=== PATIENT | male | born 1940 | race Caucasian/White ===

== ENCOUNTER 2021-05-17 12:43 | Inpatient (IN) | payer BC, MEDICARE ==
[~2021-05-17] VITALS: Ht 172.7 cm; Wt 88.0 kg
[2021-05-17 14:34] LABS: Basophils # (auto) 0 10 ^3/uL (0-0.2); Basophils % (auto) 0.3 % (0.0-2.0); Eosinophils # (auto) 0.1 10 ^3/uL (0-0.8); Eosinophils % (auto) 1.1 % (0.0-7.0); Hematocrit 40.9 % (41.0-53.0); Hemoglobin 13.7 g/dL (13.5-17.5); Mean Corpuscular Hemoglobin 30.2 pg (28.0-32.0); Mean Corpuscular Hgb Conc. 33.4 g/dL (32.0-36.0); Mean Corpuscular Volume 90.2 fL (80.0-100.0); Monocytes # (auto) 0.5 10 ^3/uL (0-1.3); Monocytes % (auto) 7.2 % (0.0-12.0); Neutrophils # (auto) 5.4 10 ^3/uL (1.6-8.6); Neutrophils % (auto) 77.4 % (37.0-80.0); Nucleated Red Blood Cells % 0.1 %; Red Blood Cells 4.53 10^6/uL (4.5-5.90); Red Cell Distribution Width 15.1 % (11.8-14.3)
[2021-05-17 14:55] LABS: Albumin 3.5 g/dL (3.4-5.0); Calcium 9.2 mg/dL (8.5-10.1); Magnesium 2.5 mg/dL (1.6-2.6); Potassium 3.9 mmol/L (3.5-5.1)
[2021-05-17 15:15] LABS: BUN/Creatinine Ratio 22.6; Bilirubin, Total 0.4 mg/dL (0.2-1.0); Total Protein 7.6 g/dL (6.4-8.2)
[2021-05-17] MEDS ORDERED: SODIUM CHLORIDE 0.9% 1,000 ML IV ONE (17:15)
[2021-05-17 19:27] LABS: Urine Bacteria NONE SEEN /hpf (None Seen); Urine Blood Negative /uL (Negative); Urine Hyaline Cast FEW /lpf (0 - 2); Urine Specific Gravity 1.021 (1.001-1.035); Urine WBC <1 /hpf (0 - 3)
[2021-05-17] MEDS ORDERED: ACETAMINOPHEN 325 MG TAB PO PRN (21:00)
[2021-05-17] MEDS ORDERED: TEMAZEPAM 15 MG CAP PO PRN (21:00)
[2021-05-17] MEDS ORDERED: MORPHINE SULFATE INJECTION 2 MG/ML SYRG IV PRN (21:00)
[2021-05-17] MEDS ORDERED: MECLIZINE HCL 25 MG TAB PO PRN (21:00)
[2021-05-17] MEDS ORDERED: ONDANSETRON HCL 4 MG/2 ML VIAL IV PRN (21:00)
[2021-05-17] MEDS ORDERED: NITROGLYCERIN 0.4 MG SL TAB SL PRN (21:00)
[2021-05-18] VITALS (15 sets, daily range): BP systolic 122–168; BP diastolic 72–92
[2021-05-18] MEDS ORDERED: LEVO25TA6 PO (05:05)
[2021-05-18] MEDS ORDERED: LOSA-69 PO (05:05)
[2021-05-18] MEDS ORDERED: HYDR12.56 PO (05:05)
[2021-05-18] MEDS ORDERED: LEVO112T4 PO (05:05)
[2021-05-18 05:35] LABS: Basophils # (auto) 0 10 ^3/uL (0-0.2); Basophils % (auto) 0.3 % (0.0-2.0); Eosinophils # (auto) 0.1 10 ^3/uL (0-0.8); Eosinophils % (auto) 2.3 % (0.0-7.0); Hematocrit 40.5 % (41.0-53.0); Hemoglobin 13.5 g/dL (13.5-17.5); Lymphocytes # (auto) 1.1 10 ^3/uL (0.4-5.4); Lymphocytes % (auto) 18.8 % (10.0-50.0); Mean Corpuscular Hemoglobin 30.2 pg (28.0-32.0); Mean Corpuscular Hgb Conc. 33.3 g/dL (32.0-36.0); Mean Corpuscular Volume 90.7 fL (80.0-100.0); Monocytes # (auto) 0.5 10 ^3/uL (0-1.3); Neutrophils % (auto) 69.6 % (37.0-80.0); Nucleated Red Blood Cells % 0.1 %; Red Blood Cells 4.46 10^6/uL (4.5-5.90); Red Cell Distribution Width 15.3 % (11.8-14.3); White Blood Cell 5.7 10^3/uL (4.4-10.8)
[2021-05-18 05:59] LABS: BUN/Creatinine Ratio 23.4; Calcium 8.7 mg/dL (8.5-10.1); Potassium 3.3 mmol/L (3.5-5.1)
[2021-05-18] MEDS: LEVOTHYROXINE SODIUM 25 MCG TAB PO SCH (06:29)
[2021-05-18] MEDS: LEVOTHYROXINE SODIUM 112 MCG TAB PO SCH (06:29)
[2021-05-18] MEDS ORDERED: ADENOSINE 72 MG in GIVE UN-DILUTED 0 ML IV STA (09:46)
[2021-05-18] MEDS ORDERED: PANTOPRAZOLE 40 MG TAB PO SCH (10:00)
[2021-05-18] MEDS ORDERED: POTASSIUM CHL 20 Meq TABLET PO ONE (10:00)
[2021-05-18] MEDS: HCTZ 25 MG TAB PO SCH (10:00)
[2021-05-18] MEDS: LOSARTAN POTASSIUM 50 MG TAB PO SCH (10:00)
[2021-05-18] MEDS: ASPirin 81 mg TAB PO SCH (10:18)
[2021-05-18 10:26] LABS: Cholesterol 163 mg/dL (< 200); HDL Cholesterol 37 mg/dL (40-59); LDL Cholesterol 114 mg/dL (< 100); Triglycerides 80 mg/dL (< 150)
[2021-05-18] MEDS ORDERED: LATA0.0019 EACHEYE (18:26)
[2021-05-18] MEDS ORDERED: BRIN1SUS6 OP (18:26)
[2021-05-18] MEDS ORDERED: THYR60TA PO (18:26)
[2021-05-18] MEDS ORDERED: LORazepam 2MG/ML-1ML VIAL IV PRN (22:45)
[2021-05-19] VITALS (14 sets, daily range): BP systolic 128–161; BP diastolic 79–97
[2021-05-19] MEDS: LEVOTHYROXINE SODIUM 25 MCG TAB PO SCH (06:34)
[2021-05-19] MEDS: LEVOTHYROXINE SODIUM 112 MCG TAB PO SCH (06:34)
[2021-05-19] MEDS: ASPirin 81 mg TAB PO SCH (09:43)
[2021-05-19] MEDS: LOSARTAN POTASSIUM 50 MG TAB PO SCH (09:44)
[2021-05-19] MEDS: HCTZ 25 MG TAB PO SCH (09:44)
[2021-05-19] MEDS ORDERED: LIDOCAINE 2%HCL (LOCAL ANESTH.) INJ 20ML MDV ONE (12:30)
[2021-05-19] MEDS ORDERED: IODIXANOL 320MG/ML 100ML BTL IV ONE ×2 (12:30→13:43)
[2021-05-19] MEDS ORDERED: ANGIOMAX 250 MG VIAL IV ONE (13:08)
[2021-05-19] MEDS ORDERED: MIDAZOLAM HCL 2MG/2ML 2ml VIAL (1mg/ml) ONE (13:09)
[2021-05-19] MEDS ORDERED: HEPARIN SODIUM (PORCINE) 5000 UNITS/ML 1ML VIAL ONE (13:09)
[2021-05-19] MEDS ORDERED: fentaNYL CITRATE 100 MCG/2 ML VL ONE (13:09)
[2021-05-19] MEDS ORDERED: SODIUM CHL 0.9% 50 ML ONE (13:09)
[2021-05-19] MEDS ORDERED: VERAPAMIL 2.5MG/ML INJ 2ML VIAL IV ONE (13:09)
[2021-05-19 13:50] LABS: Basophils # (auto) 0 10 ^3/uL (0-0.2); Basophils % (auto) 0.2 % (0.0-2.0); Eosinophils # (auto) 0.1 10 ^3/uL (0-0.8); Eosinophils % (auto) 1.3 % (0.0-7.0); Hematocrit 38.8 % (41.0-53.0); Hemoglobin 13.1 g/dL (13.5-17.5); Lymphocytes % (auto) 17.9 % (10.0-50.0); Mean Corpuscular Hemoglobin 30.3 pg (28.0-32.0); Mean Corpuscular Hgb Conc. 33.7 g/dL (32.0-36.0); Mean Corpuscular Volume 90.1 fL (80.0-100.0); Monocytes # (auto) 0.6 10 ^3/uL (0-1.3); Neutrophils # (auto) 3.9 10 ^3/uL (1.6-8.6); Neutrophils % (auto) 70.6 % (37.0-80.0); Nucleated Red Blood Cells % 0.1 %; Red Blood Cells 4.31 10^6/uL (4.5-5.90); Red Cell Distribution Width 15.2 % (11.8-14.3); White Blood Cell 5.6 10^3/uL (4.4-10.8)
[2021-05-19] MEDS ORDERED: TICAGRELOR 90 MG TAB ONE ×2 (13:59→14:00)
[2021-05-19 14:04] LABS: INR 1.07 (0.9-1.15); Partial Thromboplastin Time 26.8 sec (23.6-33.0)
[2021-05-19 14:06] LABS: BUN/Creatinine Ratio 23.8; Potassium 3.6 mmol/L (3.5-5.1)
[2021-05-19] MEDS: LATANOPROST 0.005 % OPTH(EYE) SOL 2.5ML EACHEYE SCH (17:05)
[2021-05-19] MEDS: SODIUM CHLORIDE 0.9% 1,000 ML IV SCH (17:05)
[2021-05-19] MEDS: SIMBRINZA EYE LEFTEYE SCH ×2 (17:05→22:40)
[2021-05-19] MEDS: ATORVASTATIN 20 MG TAB PO SCH (22:35)
[2021-05-19] MEDS: TICAGRELOR 90 MG TAB PO SCH (22:35)
[2021-05-20] VITALS (7 sets, daily range): BP systolic 139–164; BP diastolic 78–97
[2021-05-20] MEDS: SIMBRINZA EYE LEFTEYE SCH ×3 (05:35→23:08)
[2021-05-20 06:06] LABS: BUN/Creatinine Ratio 26.4; Calcium 8.8 mg/dL (8.5-10.1); Potassium 4.1 mmol/L (3.5-5.1)
[2021-05-20] MEDS: LEVOTHYROXINE SODIUM 112 MCG TAB PO SCH (06:30)
[2021-05-20] MEDS: LEVOTHYROXINE SODIUM 25 MCG TAB PO SCH (06:30)
[2021-05-20] MEDS: SODIUM CHLORIDE 0.9% 1,000 ML IV SCH ×2 (10:14→16:55)
[2021-05-20] MEDS: TICAGRELOR 90 MG TAB PO SCH ×2 (10:14→23:09)
[2021-05-20] MEDS: HCTZ 25 MG TAB PO SCH (10:15)
[2021-05-20] MEDS: LOSARTAN POTASSIUM 50 MG TAB PO SCH (10:15)
[2021-05-20] MEDS: ASPirin-EC 81 mg tab PO SCH (10:15)
[2021-05-20] MEDS: LATANOPROST 0.005 % OPTH(EYE) SOL 2.5ML EACHEYE SCH (17:31)
[2021-05-20] MEDS ORDERED: hydrALAZINE HCL 20 MG/ML VL IV PRN (18:15)
[2021-05-20] MEDS: SODIUM CHLOR 0.9% PF (SALINE LOCK) 10ML VIAL/SYR IV SCH (23:08)
[2021-05-20] MEDS: ATORVASTATIN 20 MG TAB PO SCH (23:09)
[2021-05-21] VITALS (7 sets, daily range): BP systolic 136–150; BP diastolic 71–89
[2021-05-21] MEDS: SIMBRINZA EYE LEFTEYE SCH ×3 (06:00→22:00)
[2021-05-21] MEDS: LEVOTHYROXINE SODIUM 25 MCG TAB PO SCH (06:40)
[2021-05-21] MEDS: LEVOTHYROXINE SODIUM 112 MCG TAB PO SCH (06:40)
[2021-05-21] MEDS: SODIUM CHLOR 0.9% PF (SALINE LOCK) 10ML VIAL/SYR IV SCH ×2 (10:06→22:00)
[2021-05-21] MEDS: TICAGRELOR 90 MG TAB PO SCH ×2 (10:06→22:00)
[2021-05-21] MEDS: HCTZ 25 MG TAB PO SCH (10:07)
[2021-05-21] MEDS: LOSARTAN POTASSIUM 50 MG TAB PO SCH (10:07)
[2021-05-21] MEDS: ASPirin-EC 81 mg tab PO SCH (10:07)
[2021-05-21] MEDS ORDERED: FUROSEMIDE 20 MG TAB PO ONE (14:45)
[2021-05-21] MEDS: LATANOPROST 0.005 % OPTH(EYE) SOL 2.5ML EACHEYE SCH (17:44)
[2021-05-21] MEDS: ATORVASTATIN 20 MG TAB PO SCH (22:00)
[2021-05-22 05:00] VITALS: BP 135/82
[2021-05-22] MEDS: SIMBRINZA EYE LEFTEYE SCH ×2 (06:00→14:00)
[2021-05-22] MEDS: LEVOTHYROXINE SODIUM 112 MCG TAB PO SCH (07:00)
[2021-05-22] MEDS: LEVOTHYROXINE SODIUM 25 MCG TAB PO SCH (07:00)
[2021-05-22 08:00] VITALS: BP 137/76
[2021-05-22] MEDS: SODIUM CHLOR 0.9% PF (SALINE LOCK) 10ML VIAL/SYR IV SCH (10:31)
[2021-05-22] MEDS: TICAGRELOR 90 MG TAB PO SCH (10:32)
[2021-05-22] MEDS: LOSARTAN POTASSIUM 50 MG TAB PO SCH (10:33)
[2021-05-22] MEDS: HCTZ 25 MG TAB PO SCH (10:34)
[2021-05-22] MEDS: ASPirin-EC 81 mg tab PO SCH (10:38)
[2021-05-22 12:00] VITALS: BP 131/83
[2021-05-22 13:37] VITALS: BP 131/83
== END 2021-05-22 15:30 | disposition home or self-care (01) | DRG 247 ==
LOC: ER 12:43 → TELE 20:48 → TELE-WESTW 23:33
PROVIDERS: ADMIT Nurse Practitioner; ATTEND Family Medicine
PROC: 4A023N7 Measurement of Cardiac Sampling and Pressure, Left Heart, Percutaneous Approach (ICD-10-PCS; principal; 2021-05-19)
PROC: 027034Z Dilation of Coronary Artery, One Artery with Drug-eluting Intraluminal Device, Percutaneous Approach (ICD-10-PCS; 2021-05-19)
PROC: B211YZZ Fluoroscopy of Multiple Coronary Arteries using Other Contrast (ICD-10-PCS; 2021-05-19)
PROC: B215YZZ Fluoroscopy of Left Heart using Other Contrast (ICD-10-PCS; 2021-05-19)
PROC: 4A033BC Measurement of Arterial Pressure, Coronary, Percutaneous Approach (ICD-10-PCS; 2021-05-19)
PROC: B240ZZ3 Ultrasonography of Single Coronary Artery, Intravascular (ICD-10-PCS; 2021-05-19)
DX: I25.10 Atherosclerotic heart disease of native coronary artery without angina pectoris (principal); N17.9 Acute kidney failure, unspecified; E87.6 Hypokalemia; G47.10 Hypersomnia, unspecified; I10 Essential (primary) hypertension; R00.1 Bradycardia, unspecified; R55 Syncope and collapse; Z20.822 Contact with and (suspected) exposure to COVID-19; E07.9 Disorder of thyroid, unspecified; E03.9 Hypothyroidism, unspecified; J45.909 Unspecified asthma, uncomplicated; E86.0 Dehydration; R40.0 Somnolence; Z80.0 Family history of malignant neoplasm of digestive organs; Z80.3 Family history of malignant neoplasm of breast; Z81.8 Family history of other mental and behavioral disorders; Z82.49 Family history of ischemic heart disease and other diseases of the circulatory system; Z85.51 Personal history of malignant neoplasm of bladder; Z88.0 Allergy status to penicillin
CPT/HCPCS: 36415; 70450; 70551; 71045; 78452; 80048; 80053; 80061; 81001; 83036; 83690; 83735; 83880; 84443; 84484; 85025; 85379; 85610; 85730; 87426; 92928; 92978; 93005; 93017; 93306; 93458; 93571; 93886; 95819; 96360; 99152; 99153; C1874; G0378; J0153; J2250; Q9967